=== PATIENT | male | born 1955 ===

== ENCOUNTER 2021-06-20 08:28 | Emergency (ER) | payer MEDICARE ==
--- NOTE | 2021-06-20 11:01 | Emergency Department Report ---
ED Abdominal Pain HPI - General Chief Complaint: Abdominal Pain Stated Complaint: ABD PAIN Time Seen by Provider: 06/20/21 10:44 Source: patient, family, EMS Mode of arrival: Ambulatory Limitations: No Limitations - History of Present Illness Initial Comments: Mr. Valero is a 65-year-old male with recent diagnosis of stomach cancer with metastasis to the liver approximately 3 weeks ago. Patient brought to the emergency room by his Ms. Brandon Valero with a phone #[phone]. Patient stated that he started to complain 3 weeks ago and he was seen by primary care physician and sent to [facility] and he was diagnosed with stomach cancer with metastasis to the liver. She stated that he scheduled for biopsy on June 23, 3 days from now. She stated that he is having more abdominal pain and he is taking OxyContin and is not helping. She also stated that he is having difficulty urinating and he did not have a bowel movement for the last 3 days even when he takes a laxative. Patient denied any nausea or vomiting. He also denied any fever or chills. No chest pain or shortness of breath. MD Complaint: abdominal pain -: week(s) (3) Location: diffuse Migration to: no migration Severity scale (0 -10): 10 Quality: sharp Associated Symptoms: dysuria - Related Data Allergies Allergy/AdvReac Type Severity Reaction Status Date / Time No Known Allergies Allergy Verified 06/20/21 11:36 ED Review of Systems ROS: Stated complaint: ABD PAIN Other details as noted in HPI Comment: All other systems reviewed and negative Constitutional: denies: chills, fever Respiratory: denies: cough, shortness of breath, SOB with exertion, SOB at rest Cardiovascular: denies: chest pain, palpitations Gastrointestinal: abdominal pain, nausea. denies: vomiting, diarrhea, constipation, hematemesis, melena Genitourinary: urgency, dysuria, frequency Musculoskeletal: denies: back pain Neurological: denies: headache, weakness, numbness, paresthesias, confusion ED Physical Exam - General Limitations: No Limitations General appearance: alert, in distress - Head Head exam: Present: atraumatic, normocephalic, normal inspection - Eye Eye exam: Present: normal appearance, PERRL - ENT ENT exam: Present: mucous membranes dry - Neck Neck exam: Present: normal inspection, full ROM. Absent: tenderness, meningismus - Respiratory Respiratory exam: Present: normal lung sounds bilaterally - Cardiovascular Cardiovascular Exam: Present: regular rate, normal rhythm, normal heart sounds - GI/Abdominal GI/Abdominal exam: Present: soft, tenderness, normal bowel sounds. Absent: distended, guarding, rebound, rigid, organomegaly, mass, bruit, pulsatile mass, hernia - Extremities Exam Extremities exam: Present: normal inspection, full ROM, normal capillary refill. Absent: tenderness - Back Exam Back exam: Present: normal inspection, full ROM. Absent: CVA tenderness (R), CVA tenderness (L) - Neurological Exam Neurological exam: Present: alert, oriented X3, CN II-XII intact. Absent: motor sensory deficit - Psychiatric Psychiatric exam: Present: normal mood - Skin Skin exam: Present: warm, intact, normal color ED Medical Decision Making - Lab Data Result diagrams: 06/20/21 11:12 06/20/21 11:12 - Radiology Data Radiology results: report reviewed - Medical Decision Making Mr. Valero is a 65-year-old male with recent diagnosis of stomach cancer with metastasis to the liver approximately 3 weeks ago. Patient brought to the emergency room by his Ms. Brandon Valero with a phone #[phone]. Patient stated that he started to complain 3 weeks ago and he was seen by [facility] physician and sent to [facility] and he was diagnosed with stomach cancer with metastasis to the liver. She stated that he scheduled for biopsy on June 23, 3 days from now. She stated that he is having more abdominal pain and he is taking OxyContin and is not helping. She also stated that he is having difficulty urinating and he did not have a bowel movement for the last 3 days even when he takes a laxative. Patient denied any nausea or vomiting. He also denied any fever or chills. No chest pain or shortness of breath. Labs showed leukocytosis of 13,000. CT abdomen and pelvis showed severe metastasis to the liver. No clinical evidence of pneumonia at this point as patient is not coughing or having any shortness of breath or fever. Patient received morphine and Zofran. Patient stated that his pain is better. Patient advised to follow-up with his oncologist as scheduled in 2 days and to return to the ER or go to another ER if he develop any new symptoms or if his symptoms get worse. Critical care attestation.: If time is entered above; I have spent that time in minutes in the direct care of this critically ill patient, excluding procedure time. ED Disposition Clinical Impression: Acute abdominal pain, Metastasis to liver of unknown origin, UTI (urinary tract infection), Constipation Disposition: 01 HOME / SELF CARE / HOMELESS Is pt being admited?: No Condition: Stable Instructions: Abdominal Pain, Adult, [id number], Liver Cancer, Urinary Tract Infection, Adult, Constipation, Adult Referrals: PRIMARY CARE, [Primary Care Provider] - 3-5 Days
[2021-06-20 11:43] LABS: Albumin 3.4 g/dL (3.9-5); Bilirubin,Direct 0.5 mg/dL (0-0.2); Calcium 9.3 mg/dL (8.4-10.2)
[2021-06-20] MEDS ORDERED: MORPHINE 4 MG/1 ML INJ IV ONE (12:00)
[2021-06-20] MEDS ORDERED: SODIUM CHLORIDE 0.9% 1000 ML 1,000 ML IV ONE (12:00)
[2021-06-20] MEDS ORDERED: ONDANSETRON 4 MG/2 ML INJ IV ONE (12:00)
[2021-06-20 12:01] LABS: Basophils % (Auto) 0.2 % (0.0-1.8); Hematocrit 31.5 % (35.5-45.6); Hemoglobin 10.2 gm/dl (11.8-15.2); Lymphocytes % (Auto) 7.1 % (13.4-35.0); Mean Corpuscular HGB Conc 32 % (32-34); Mean Corpuscular Volume 86 fl (84-94); Monocytes # (Auto) 0.6 K/mm3 (0.0-0.8); Monocytes % (Auto) 4.8 % (0.0-7.3); Platelet Count 615 K/mm3 (140-440); Red Blood Count 3.67 M/mm3 (3.65-5.03); Red Cell Distribution Width 18.2 % (13.2-15.2)
--- NOTE | 2021-06-20 13:22 | Cat Scan Report ---
CT ABDOMEN AND PELVIS WITH CONTRAST INDICATION / CLINICAL INFORMATION: Diffuse abdominal pain. TECHNIQUE: Axial CT images were obtained through the abdomen and pelvis after Omnipaque 300, 100 cc I V contrast. All CT scans at this location are performed using CT dose reduction for ALARA by means o f automated exposure control. COMPARISON: None available. FINDINGS: LOWER CHEST: Volume loss patchy opacity at the right middle lobe is partially imaged. LIVER: Large with diffuse low-density lesions. A b2b outside sales representative lesion towards the dome posteriorly ( series 2, image 34) measures 9.3 cm. There is a pedunculated lesion versus carol mass seen in the reg ion of the left hepatic lobe posteriorly abutting the gastrohepatic ligament. GALLBLADDER: No significant abnormality. BILE DUCTS: No significant abnormality. PANCREAS: No significant abnormality. SPLEEN: No significant abnormality. ADRENALS: No significant abnormality. RIGHT KIDNEY / URETER: No significant abnormality. LEFT KIDNEY / URETER: No significant abnormality. STOMACH / SMALL BOWEL: No significant abnormality. COLON: No significant abnormality. APPENDIX: No significant abnormality. PERITONEUM: Mild free fluid. No free air. No fluid collection. LYMPH NODES: No significant adenopathy. VASCULAR STRUCTURES: No significant abnormality. URINARY BLADDER: No significant abnormality. REPRODUCTIVE ORGANS: No significant abnormality. ADDITIONAL FINDINGS: None. SKELETAL SYSTEM: No significant abnormality. IMPRESSION: 1. Extensive hepatic metastatic disease with probable pedunculated lesion along the posterior aspect of the left lobe. No underlying etiology. 2. Mild pelvic free fluid. 3. Volume loss with patchy consolidation at the right middle lobe is of uncertain chronicity. The dif ferential diagnosis includes a chronic process such as MAC, atypical pneumonia and community acquired pneumonia. Signer Name: Alvaro Paez MD Signed: 06/20/2021 1:17 PM Workstation Name: [id number]
[2021-06-20] MEDS ORDERED: cefTRIAXone/NS 1 GM/50 ML 1 GM/50 ML BAG IV ONE (16:28)
[2021-06-20 17:17] LABS: Bilirubin,Urine NEG (Negative); Blood,Urine NEG (Negative); Color,Urine Yellow (Yellow); Mucus,Urine FEW /HPF; Urobilinogen,Urine < 2.0 mg/dL (<2.0)
[2021-06-20 18:10] VITALS: BP 153/89
== END 2021-06-20 18:10 | disposition home or self-care (01) ==
LOC: ED 08:28
DX: C78.7 Secondary malignant neoplasm of liver and intrahepatic bile duct (principal); N39.0 Urinary tract infection, site not specified; K59.00 Constipation, unspecified
CPT/HCPCS: 36415; 74177; 80048; 80076; 81001; 83690; 85025; 96361; 96365; 96375; 99284; J0696; J2270; J2405; J7030; Q9967; Q0162